=== PATIENT | female | born 1985 | race African-American/Black ===

== ENCOUNTER 2020-02-08 07:37 | Emergency (ER) | payer OTHER ==
[2020-02-08] MEDS ORDERED: Acetaminophen 500 MG TAB ONE (07:53)
[2020-02-08] MEDS ORDERED: Sodium Chloride 0.9% 1,000 ML ONE (07:53)
[2020-02-08 08:42] LABS: Bilirubin Negative (Negative); Blood, Urine Small (Negative); Clarity Clear (Clear); Glucose, Urine (Dipstick) Negative (Negative); Leukocyte Negative (Negative); Nitrite Negative (Negative); Protein, Urine (Dipstick) 100 mg/dL (Neg-Trace); Urobilinogen 0.2 mg/dL (Less than 2)
[2020-02-08 08:45] LABS: BHCG - Serum Negative (NEGATIVE); Pregs Control Bar Appear? YES (CONTROL BAR)
[2020-02-08 08:46] LABS: Bacteria/HPF Rare-Few HPF (None Seen); RBC/HPF 0-3 HPF (0-3); Squamous Epithelial 0-3 HPF (0-3)
[2020-02-08 08:50] LABS: Hemoglobin 11.7 g/dL (12.0-16.0); Mean Corpuscular Hemoglobin 20.9 pg (27.0-31.0); Mean Corpuscular Volume 69.5 fL (78.0-98.0); Red Blood Cell (RBC) Count 5.61 mill/uL (4.20-5.40); White Blood Cell (WBC) Count 8.6 thou/uL (4.8-10.8)
[2020-02-08 08:51] LABS: #Lymphocytes 0.7 thou/uL (1.20-3.40); #Monocytes 0.2 thou/uL (0.11-0.59); #Neutrophils 7.7 thou/uL (1.40-6.50); %Basophils 0.6 % (0.0-1.0); %Eosinophils 0.9 % (0.0-10.0); %Lymphocytes 8.2 % (21.0-51.0); %Monocytes 2.1 % (0.0-10.0); %Neutrophils 89.1 % (42.0-75.0); Platelet Count 214 thou/uL (130-400); RBC Distribution Width 15.2 % (11.5-14.5)
[2020-02-08 08:52] LABS: Mean Platelet Volume 6.8 fL (7.4-10.4)
[2020-02-08 08:55] LABS: Microcytosis MODERATE=15-30 cells (100X) (0-5/hpf)
[2020-02-08 09:00] LABS: Anion Gap 16 mmol/L (10-20); Globulin 5.5 g/dL (2.4-3.5)
[2020-02-08] MEDS ORDERED: Iopamidol 370 76% 100 ML VIAL ONE (09:00)
[2020-02-08 09:03] LABS: AST (SGOT) 111 U/L (5-34); Albumin 3.3 g/dL (3.5-5.0); Alkaline Phosphatase 44 U/L (40-110); BUN (Urea Nitrogen) 26 mg/dL (7.0-18.7); Bilirubin, Total 0.3 mg/dL (0.2-1.2); Calc. Creatinine Clearance 0 mL/min (70-130); Calcium 8.5 mg/dL (7.8-10.44); Carbon Dioxide 18 mmol/L (22-29); Chloride 99 mmol/L (98-107); Estimated GFR-MDRD 46; Glucose 110 mg/dL (70-105); Potassium 4.5 mmol/L (3.5-5.1); Protein, Total 8.8 g/dL (6.0-8.3); Sodium 128 mmol/L (136-145)
[2020-02-08 09:04] LABS: ALT (SGPT) 77 U/L (8-55); Lipase 19 U/L (8-78)
[2020-02-08 10:11] LABS: Anion Gap 14 mmol/L (10-20)
[2020-02-08 10:16] LABS: BUN (Urea Nitrogen) 24 mg/dL (7.0-18.7); Calc. Creatinine Clearance 0 mL/min (70-130); Carbon Dioxide 16 mmol/L (22-29); Chloride 101 mmol/L (98-107); Estimated GFR-MDRD 59; Glucose 96 mg/dL (70-105); Potassium 4.3 mmol/L (3.5-5.1); Sodium 127 mmol/L (136-145)
[2020-02-08 10:17] LABS: Calcium 7.6 mg/dL (7.8-10.44)
--- NOTE | 2020-02-08 10:20 | CT ---
CT ABDOMEN AND PELVIS: Date: 02/08/2020 HISTORY: Abdominal pain with fever and sore throat. TECHNIQUE: Axial CT imaging at 5 mm intervals from lung bases through pubic symphysis with intravenous contrast. Coronal and sagittal reformatted imaging obtained. FINDINGS: The visualized lung bases are unremarkable. No free intraperitoneal air is noted. The spleen, liver, gallbladder, pancreas, adrenal glands, and kidneys appear grossly unremarkable. Evaluation of the bowel is limited without oral contrast media. No evidence for bowel obstruction is seen and there is no focal area of bowel inflammatory change apparent. The appendix is partially visu alized and appears normal. Multiple round lesions are noted within the pelvis. This includes an ill-defined hypodense lesion in the right hemipelvis measuring approximately 3.0 cm on axial image 63, which is likely ovarian or les s likely uterine. In addition, just superior and posterior to this, is an additional low density lesi on measuring 3.7 cm, which could be ovarian or uterine in etiology. Two isodense/hyperdense lesions a re seen posterior to this, one on axial image 67 measuring 2.7 cm and one on image 65, extending into the pelvic cul-de-sac, measuring 2.2 cm. None of these lesions demonstrate Hounsfield units consiste nt with simple cysts, and thus, may represent solid lesions and/or complex/hemorrhagic cystic lesions . The vascular structures of the abdomen/pelvis appear patent. No lymphadenopathy is appreciated within the abdomen/pelvis. Review of the osseous structures demonstrates no worrisome lytic or blastic bone lesion. IMPRESSION: 1. No free intraperitoneal air, evidence for appendicitis, or evidence for bowel obstruction. 2. Multiple nonspecific round pelvic lesions which may be ovarian and/or uterine in nature. The Houn sfield units of these lesions suggest either solid masses and/or complex cystic lesions. These findin gs may be better assessed with pelvic ultrasound. In addition, correlation with quantitative beta HCG is advised to exclude the possibility of ectopic . Pelvic inflammatory disease is a possibi lity as well. POS: [facility]
== END 2020-02-08 10:54 | disposition home or self-care (01) ==
LOC: NAV ERS 07:37
DX: E87.1 Hypo-osmolality and hyponatremia (principal); E86.0 Dehydration; N28.9 Disorder of kidney and ureter, unspecified; M32.9 Systemic lupus erythematosus, unspecified; Z79.52 Long term (current) use of systemic steroids; Z79.899 Other long term (current) drug therapy
CPT/HCPCS: 74177; 80053; 81003; 81015; 83605; 83690; 84703; 85025; 87081; 87430; 87804; 96360; J7050; Q9967